=== PATIENT | male | born 1960 | race Two or more races ===

== ENCOUNTER 2020-04-17 01:08 | Inpatient (IN) | payer BC ==
[~2020-04-17] VITALS: Ht 167.6 cm; Wt 78.6 kg
[2020-04-17] VITALS (7 sets, daily range): BP systolic 131–200; BP diastolic 87–118
[2020-04-17] MEDS ORDERED: LISI5TAB7 PO (04:51)
[2020-04-17] MEDS ORDERED: MELO15TA24 PO (04:55)
[2020-04-17] MEDS ORDERED: VALA10007 PO (04:55)
[2020-04-17] MEDS ORDERED: OMEP20TA62 PO (04:55)
[2020-04-17] MEDS ORDERED: SODIUM CHLORIDE 0.9% 1,000 ML IV SCH (06:05)
[2020-04-17] MEDS ORDERED: PLEASE ENTER ALLERGIES MC SCH (06:30)
[2020-04-17] MEDS ORDERED: TEMAZEPAM 15 MG CAPSULE PO PRN (06:30)
[2020-04-17] MEDS ORDERED: morphine SULFATE 10 MG/ML, 1ML IVPush PRN (06:30)
[2020-04-17] MEDS ORDERED: HEPARIN 25,000 UNITS/250ML PMX 250 ML ONE (06:30)
[2020-04-17] MEDS ORDERED: hydrALAzine 20 MG/ML, 1ML IVPush PRN (06:30)
[2020-04-17] MEDS ORDERED: ACETAMINOPHEN 325 MG TABLET PO PRN (06:30)
[2020-04-17] MEDS ORDERED: NITROGLYCERIN 0.4 MG BOTTLE (25 TABS) SL PRN (06:30)
[2020-04-17] MEDS ORDERED: METHOCARBAMOL 500 MG TABLET PO PRN (06:30)
[2020-04-17] MEDS ORDERED: NITROGLYCERIN 0.4 MG/SPRAY SL PRN (06:30)
[2020-04-17] MEDS ORDERED: HYDROcodone/APAP 5/325 TABLET PO PRN (06:30)
[2020-04-17] MEDS ORDERED: ONDANSETRON 2MG/ML, 2ML IVPush PRN (06:30)
[2020-04-17] MEDS ORDERED: HEPARIN 5,000 UNITS/ML, 1ML IV PRN (07:00)
[2020-04-17] MEDS ORDERED: HEPARIN 25,000 UNITS/250ML PMX 250 ML IV PRN (07:00)
[2020-04-17] MEDS ORDERED: HEPARIN 5,000 UNITS/ML, 1ML IV ONE (07:00)
[2020-04-17 07:08] LABS: TROPONIN I 0.519 ng/mL (0.000-0.045)
[2020-04-17] MEDS: FAMOTIDINE 20 MG TABLET PO SCH ×2 (09:00→20:36)
[2020-04-17] MEDS ORDERED: FAMOTIDINE 20 MG TABLET PO SCH (09:00)
[2020-04-17] MEDS ORDERED: FAMOTIDINE 20 MG/2 ML IVPush SCH (09:00)
[2020-04-17] MEDS ORDERED: LISINOPRIL 5 MG TABLET PO SCH (09:00)
[2020-04-17 09:14] LABS: BASOPHILS # (AUTO) 0.02 x10^3/uL (0-0.1); BASOPHILS % (AUTO) 0 % (0-1); EOSINOPHILS # (AUTO) 0.04 x10^3/uL (0-0.4); EOSINOPHILS % (AUTO) 1 % (1-7); LYMPHOCYTES # (AUTO) 2.03 x10^3/uL (1-3.4); LYMPHOCYTES % (AUTO) 32 % (22-44); MD NO; MEAN CORPUSCULAR HGB CONC 32.9 g/dL (33.2-36.2); MEAN CORPUSCULAR VOLUME 94.2 fL (81-97); MEAN PLATELET VOLUME 8.9 fL (7.4-10.4); MONOCYTES # (AUTO) 0.46 x10^3/uL (0.2-0.8); MONOCYTES % (AUTO) 7 % (2-9); NEUTROPHILS # (AUTO) 3.71 x10^3/uL (1.8-6.8); NEUTROPHILS % (AUTO) 59 % (42-75); PLATELET COUNT 217 x10^3/uL (130-400); RED CELL DISTRIBUTION WIDTH 13.8 % (9.4-14.8)
[2020-04-17 09:23] LABS: ANION GAP 6 mmol/L (5-15); CHLORIDE 112 mmol/L (98-107); CREATININE 0.85 mg/dL (0.7-1.3)
[2020-04-17] MEDS: ASPIRIN 325 MG TABLET PO SCH (09:41)
[2020-04-17] MEDS: CARVEDILOL 3.125 MG TABLET PO SCH ×2 (09:42→18:13)
[2020-04-17] MEDS: LACTOBACILLUS CHEW TABLET PO SCH ×3 (09:43→20:35)
[2020-04-17] MEDS: SODIUM CHLORIDE 0.9% 1,000 ML IV SCH ×4 (11:35→22:17)
[2020-04-17 12:29] LABS: TROPONIN I 0.334 ng/mL (0.000-0.045)
[2020-04-17] MEDS: ACETAMINOPHEN 325 MG TABLET PO PRN (13:40)
[2020-04-17] MEDS ORDERED: VERAPAMIL 2.5 MG/ML, 2ML ONE (16:45)
[2020-04-17] MEDS ORDERED: BIVALIRUDIN 250 MG ONE (16:45)
[2020-04-17] MEDS ORDERED: FENTANYL PF 100 MCG/2ML ONE (16:45)
[2020-04-17] MEDS ORDERED: HEPARIN 1,000 UNITS/ML, 10ML ONE (16:45)
[2020-04-17] MEDS ORDERED: LIDOCAINE-MPF 1%, 5ML ONE (16:45)
[2020-04-17] MEDS ORDERED: MIDAZOLAM 1 MG/ML, 2ML ONE (16:45)
[2020-04-17] MEDS: ATORVASTATIN 40 MG TABLET PO SCH (20:36)
[2020-04-17] MEDS ORDERED: hydrALAzine 20 MG/ML, 1ML IV ONE (23:00)
[2020-04-18] MEDS ORDERED: LABETALOL 5MG/ML, 20ML IVPush ONE
[2020-04-18] MEDS: ACETAMINOPHEN 325 MG TABLET PO PRN ×3 (00:16→18:24)
[2020-04-18 00:28] LABS: FREE T4 (FREE THYROXINE) 1.4 ng/dL (0.76-1.46)
[2020-04-18 00:58] VITALS: BP 148/99
[2020-04-18] MEDS ORDERED: hydrALAzine 20 MG/ML, 1ML IVPush PRN (02:30)
[2020-04-18 05:28] LABS: BASOPHILS # (AUTO) 0.03 x10^3/uL (0-0.1); BASOPHILS % (AUTO) 0 % (0-1); EOSINOPHILS # (AUTO) 0.14 x10^3/uL (0-0.4); EOSINOPHILS % (AUTO) 2 % (1-7); LYMPHOCYTES # (AUTO) 1.98 x10^3/uL (1-3.4); LYMPHOCYTES % (AUTO) 32 % (22-44); MD NO; MEAN CORPUSCULAR HEMOGLOBIN 31.2 pg (27.5-34.5); MEAN CORPUSCULAR HGB CONC 32.9 g/dL (33.2-36.2); MEAN CORPUSCULAR VOLUME 94.8 fL (81-97); MEAN PLATELET VOLUME 9.1 fL (7.4-10.4); MONOCYTES # (AUTO) 0.53 x10^3/uL (0.2-0.8); MONOCYTES % (AUTO) 9 % (2-9); NEUTROPHILS # (AUTO) 3.48 x10^3/uL (1.8-6.8); NEUTROPHILS % (AUTO) 57 % (42-75); PLATELET COUNT 205 x10^3/uL (130-400); RED BLOOD COUNT 5.01 x10^6/uL (4.38-5.82); RED CELL DISTRIBUTION WIDTH 14.3 % (9.4-14.8)
[2020-04-18 05:45] LABS: ALBUMIN 3.5 g/dL (3.4-5.0); ANION GAP 9 mmol/L (5-15); CALCIUM 8.8 mg/dL (8.5-10.1); CHLORIDE 111 mmol/L (98-107)
[2020-04-18 05:49] LABS: ALANINE AMINOTRANSFERASE 228 U/L (12-78); ALKALINE PHOSPHATASE 77 U/L (45-117); BILIRUBIN,TOTAL 0.7 mg/dL (0.2-1.0); CREATININE 0.85 mg/dL (0.7-1.3); TOTAL PROTEIN 7.2 g/dL (6.4-8.2)
[2020-04-18 06:00] VITALS: BP 193/100
[2020-04-18] MEDS ORDERED: SODIUM CHLORIDE 0.9% 1,000 ML IV SCH (06:05)
[2020-04-18] MEDS: ASPIRIN 325 MG TABLET PO SCH (06:05)
[2020-04-18] MEDS: CARVEDILOL 3.125 MG TABLET PO SCH ×2 (06:05→17:26)
[2020-04-18 08:03] VITALS: BP 149/75
[2020-04-18] MEDS ORDERED: LISINOPRIL 10 MG TABLET PO SCH (09:00)
[2020-04-18] MEDS: LACTOBACILLUS CHEW TABLET PO SCH ×2 (09:08→17:25)
[2020-04-18] MEDS: FAMOTIDINE 20 MG TABLET PO SCH ×2 (09:09→18:11)
[2020-04-18 13:04] VITALS: BP 110/75
[2020-04-18] MEDS ORDERED: LISI-167 PO (16:22)
[2020-04-18] MEDS ORDERED: CARV3.1212 PO (16:22)
[2020-04-18] MEDS ORDERED: ASPI81TA45 PO (16:22)
[2020-04-18] MEDS ORDERED: ATOR40TA78 PO (16:22)
[2020-04-18] MEDS ORDERED: ACID1TAB7 PO (16:22)
[2020-04-18] MEDS: ATORVASTATIN 40 MG TABLET PO SCH (18:11)
== END 2020-04-18 18:26 | disposition home or self-care (01) | DRG 282 ==
LOC: 5SO 01:08
PROVIDERS: ADMIT Internal Medicine; ATTEND Internal Medicine
PROC: 4A023N7 Measurement of Cardiac Sampling and Pressure, Left Heart, Percutaneous Approach (ICD-10-PCS; principal; 2020-04-17)
PROC: B2111ZZ Fluoroscopy of Multiple Coronary Arteries using Low Osmolar Contrast (ICD-10-PCS; 2020-04-17)
PROC: B2151ZZ Fluoroscopy of Left Heart using Low Osmolar Contrast (ICD-10-PCS; 2020-04-17)
DX: I21.4 Non-ST elevation (NSTEMI) myocardial infarction (principal); R00.2 Palpitations; I10 Essential (primary) hypertension; K21.9 Gastro-esophageal reflux disease without esophagitis; R74.0 Nonspecific elevation of levels of transaminase and lactic acid dehydrogenase [LDH]; G47.00 Insomnia, unspecified; I25.10 Atherosclerotic heart disease of native coronary artery without angina pectoris; K76.9 Liver disease, unspecified
CPT/HCPCS: 36415; J3490; 76705; 80048; 80053; 84439; 84443; 84481; 84484; 85025; 85520; 93306; 93458; 99156; C1769; C1894; G0378; J0583; J1644; J2250; J3010; J0360; J7030; Q9967